=== PATIENT | female | born 1960 ===

== ENCOUNTER 2020-08-27 06:11 | Day surgery (SDC) | payer OTHER | END 2020-08-27 13:20 | disposition home or self-care (01) | LOC: AMB-ENDOS 06:11 | PROVIDERS: ATTEND Colon & Rectal Surgery | DX: K62.89 Other specified diseases of anus and rectum (principal); K64.2 Third degree hemorrhoids; Z20.828 Contact with and (suspected) exposure to other viral communicable diseases ==

== ENCOUNTER 2020-10-05 08:30 | Inpatient (IN) | payer OTHER ==
[~2020-10-05] VITALS: Ht 162.6 cm; Wt 65.8 kg
[2020-10-05] MEDS ORDERED: DULOX PO (14:17)
[2020-10-05] MEDS ORDERED: LAMOTRIGINE100 MG PO (14:17)
[2020-10-05] MEDS ORDERED: CLONAZEPAM2 MG PO (14:18)
[2020-10-05] MEDS ORDERED: RELAF PO (14:18)
[2020-10-05] MEDS ORDERED: SEROQUEL200 MG PO (14:18)
[2020-10-05] MEDS ORDERED: HORIZANT300 MG PO (14:19)
[2020-10-05] MEDS ORDERED: ESTRADIOL2 MG PO (14:20)
[2020-10-05] MEDS ORDERED: NORFLEX100MG PO (14:21)
[2020-10-13] MEDS ORDERED: CLEARLAX119 GM (08:01)
[2020-10-13] MEDS ORDERED: CALCIUM CARBON600 MG (08:01)
[2020-10-13] MEDS ORDERED: AMITRIPTYLINE H50 MG (08:01)
[2020-10-13] MEDS ORDERED: DULOXETINE HCL60 MG (08:01)
[2020-10-13] MEDS ORDERED: BIOTIN10 MG (08:01)
[2020-10-13] MEDS ORDERED: VITAMIN B-12500 MCG (08:02)
[2020-10-13] MEDS ORDERED: FOLIC ACID1 MG (08:02)
[2020-10-13] MEDS ORDERED: MAXIMUM D3325 MCG (08:02)
[2020-10-13] MEDS ORDERED: BACLOFEN10 MG (08:02)
[2020-10-13] MEDS ORDERED: VITAMIN E450 MG (08:02)
[2020-10-13] MEDS ORDERED: NABUMETONE750 MG (08:04)
== END 2020-10-15 19:43 | disposition home or self-care (01) | DRG 331 ==
LOC: SURH 10-12 06:00 → O/R 10-12 06:00 → SURH 10-12 07:00
PROVIDERS: ADMIT Colon & Rectal Surgery; ATTEND Colon & Rectal Surgery
PROC: 0DBN4ZZ Excision of Sigmoid Colon, Percutaneous Endoscopic Approach (ICD-10-PCS; 2020-10-12)
PROC: 0DJD8ZZ Inspection of Lower Intestinal Tract, Via Natural or Artificial Opening Endoscopic (ICD-10-PCS; 2020-10-12)
PROC: 0DTP4ZZ Resection of Rectum, Percutaneous Endoscopic Approach (ICD-10-PCS; principal; 2020-10-12 07:00)
DX: N80.5 Endometriosis of intestine (principal); F43.23 Adjustment disorder with mixed anxiety and depressed mood

== ENCOUNTER 2020-10-25 13:10 | Inpatient (IN) | payer OTHER ==
[~2020-10-25] VITALS: Ht 162.6 cm; Wt 63.5 kg
[~2020-10-25 13:10] MED LIST: AMITRIPTYLINE H50 MG; BACLOFEN10 MG; BIOTIN10 MG; CALCIUM CARBON600 MG; CLEARLAX119 GM; CLONAZEPAM2 MG PO; DULOX PO; DULOXETINE HCL60 MG; ESTRADIOL2 MG PO; FOLIC ACID1 MG; HORIZANT300 MG PO; LAMOTRIGINE100 MG PO; MAXIMUM D3325 MCG; NABUMETONE750 MG; NORFLEX100MG PO; RELAF PO; SEROQUEL200 MG PO; VITAMIN B-12500 MCG; VITAMIN E450 MG
[2020-10-25] MEDS ORDERED: ELAVIL 50 MG (13:52)
[2020-10-25] MEDS ORDERED: CLONAZEPAM2 M1 (13:52)
== END 2020-10-30 10:19 | disposition home or self-care (01) | DRG 390 ==
LOC: ER 13:10 → SEC-K 10-26 11:24 → MEDI 10-26 11:24
PROVIDERS: ADMIT Colon & Rectal Surgery; ATTEND Colon & Rectal Surgery
PROC: BW21ZZZ Computerized Tomography (CT Scan) of Abdomen and Pelvis (ICD-10-PCS; principal; 2020-10-26)
DX: K56.690 Other partial intestinal obstruction (principal); F41.8 Other specified anxiety disorders; N80.5 Endometriosis of intestine; Z20.828 Contact with and (suspected) exposure to other viral communicable diseases